=== PATIENT | male | born 1995 ===

== ENCOUNTER 2023-10-13 15:22 | Emergency (ER) | payer MEDICAID ==
[~2023-10-13] VITALS: Ht 172.7 cm; Wt 72.6 kg
[2023-10-13] MEDS ORDERED: ONDANSETRON 4 MG/2 ML VIAL IV ONE (15:45)
[2023-10-13] MEDS ORDERED: ACETAMINOPHEN ES 500 MG TABLET PO ONE (15:45)
[2023-10-13] MEDS ORDERED: FENTANYL CITRATE 100 MCG/2 ML AMPUL IV ONE (15:45)
[2023-10-13] MEDS ORDERED: IV NORMAL SALINE 1000 ML BAG IV ONE (15:45)
[2023-10-13 15:53] LABS: *BILIRUBIN,URIN NEGATIVE (NEGATIVE); *BLOOD, URINE 3+ (NEGATIVE); *CLARITY,URINE CLEAR (CLEAR); *COLOR,URINE YELLOW (YELLOW); *KETONES,URINE TRACE (NEGATIVE); *PROTEIN,URINE NEGATIVE (NEGATIVE); *UROBILINOGEN,URINE 0.2 E.U./dl (NORMAL); LEUKOCYTE ESTERASE ,URINE NEGATIVE (NEGATIVE); NITRITE, URINE NEGATIVE (NEGATIVE); PH,URINE 5.5 (5.0-8.0); UGLUCOSE NEGATIVE (NEGATIVE)
[2023-10-13] MEDS ORDERED: ACETAMINOPHEN ES 500 MG TABLET ONE (16:07)
[2023-10-13] MEDS ORDERED: ONDANSETRON 4 MG/2 ML VIAL ONE (16:07)
[2023-10-13] MEDS ORDERED: FENTANYL CITRATE 100 MCG/2 ML AMPUL ONE (16:08)
[2023-10-13 16:21] LABS: BACTERIA,URINE FEW /HPF (NONE SEEN); RBC,URINE 20-50 /HPF (0-3); URINE AMORPHOUS URATE MANY /HPF; WBC,URINE 0-3 /HPF (0-3)
[2023-10-13 16:23] LABS: CALCIUM 9.1 mg/dL (8.5-10.1)
[2023-10-13 16:30] LABS: ALBUMIN 4.4 g/dL (3.4-5.0); BILIRUBIN,DIRECT 0.1 mg/dL (0.0-0.2); BILIRUBIN,TOTAL 0.5 mg/dL (0.2-1.0); TOTAL PROTEIN, SERUM 7.6 g/dL (6.4-8.2)
[2023-10-13 16:31] LABS: BASOPHILS # (AUTO) 0.1 K/UL (0.0-0.2); BASOPHILS % (AUTO) 0.6 % (0.0-2.0); EOSINOPHILS % (AUTO) 0.1 % (0.0-7.0); HEMATOCRIT 42.9 % (36.7-47.1); HEMOGLOBIN 14.3 g/dL (12.5-16.3); LYMPHOCYTES # (AUTO) 0.9 K/uL (0.8-4.8); LYMPHOCYTES % (AUTO) 6.4 % (20.5-51.5); MEAN CORPUSCULAR HEMOGLOBIN 30.7 uug (23.8-33.4); MEAN CORPUSCULAR HGB CONC 33 g/dL (32.5-36.3); MEAN CORPUSCULAR VOLUME 91.8 fL (73.0-96.2); MONOCYTES # (AUTO) 0.6 K/uL (0.1-1.30); MONOCYTES % (AUTO) 4.6 % (0.0-11.0); NEUTROPHILS # (AUTO) 11.9 K/uL (1.8-8.9); NEUTROPHILS % (AUTO) 88.3 % (38.5-71.5); PLATELET COUNT (AUTO) 235 K/uL (152-348); RED BLOOD CELL COUNT(AUTO) 4.67 MIL/uL (4.06-5.63); WHITE BLOOD COUNT (AUTO) 13.5 K/uL (3.6-10.2)
[2023-10-13] MEDS ORDERED: HYDR-4209 PO (17:37)
[2023-10-13] MEDS ORDERED: TAMS-3 PO (17:37)
[2023-10-13] MEDS ORDERED: IBUP-1955 PO (17:37)
[2023-10-13] MEDS ORDERED: ONDA4TAB5 PO (17:37)
[2023-10-13 18:05] VITALS: BP 134/87; O2SAT 100
== END 2023-10-13 18:05 | disposition home or self-care (01) ==
LOC: ER 15:25
DX: N13.2 Hydronephrosis with renal and ureteral calculous obstruction (principal); R31.9 Hematuria, unspecified; Z60.2 Problems related to living alone
CPT/HCPCS: 36415; 76775; 83690; 85025; A4606; A4663; A9150; J2405; J3010; J7040